=== PATIENT | male | born 1940 | race Caucasian/White ===

== ENCOUNTER 2021-09-04 19:40 | Emergency (ER) | payer MEDICARE ==
[2021-09-04] MEDS ORDERED: Morphine 4 MG/ML VIAL ONE ×2 (20:06→21:30)
[2021-09-04] MEDS ORDERED: Ondansetron PF 4 MG/2 ML Vial ONE (20:07)
[2021-09-04] MEDS ORDERED: PROPOFOL 0 ML ONE (20:36)
[2021-09-04] MEDS ORDERED: Ketamine 50 MG/ML (10ML VIAL) ONE (20:36)
== END 2021-09-05 01:23 | disposition home or self-care (01) ==
LOC: ERS 19:40
DX: S43.005A Unspecified dislocation of left shoulder joint, initial encounter (principal); W01.0XXA Fall on same level from slipping, tripping and stumbling without subsequent striking against object, initial encounter
CPT/HCPCS: 23650; 96374; 96375; 96376; J2270; J2405; J2704

== ENCOUNTER 2025-08-18 12:45 | Outpatient (CLI) | payer MEDICARE | END 2025-08-18 12:46 | disposition home or self-care (01) | LOC: ULT 12:45 | PROVIDERS: ATTEND Internal Medicine Nephrology | DX: N18.4 Chronic kidney disease, stage 4 (severe) (principal) | CPT/HCPCS: 76770 ==